=== PATIENT | female | born 1950 | race Caucasian/White ===

== ENCOUNTER 2021-04-02 13:23 | Inpatient (IN) | payer OTHER, MEDICARE ==
[~2021-04-02] VITALS: Ht 167.6 cm; Wt 64.9 kg
--- NOTE | ~2021-04-02 | EMS ---
[address] [address] EMS Patient Care Report Name: CELENA VALENTINO Room #: REG CHANTAL Haque#: [id number] Admission: 04/02/21 Attend Phys: Discharge: Date of : 46 Report #: [id number] THIS REPORT FOR: //name// Report Transmitted: 04/02/2021 18:45 EMS Care Summary [facility] MED-ACT Incident [id number] @ 04/02/2021 12:30 Incident Location [address] [place] [address] Patient CELENA VALENTINO Female, 71 Years 1950 Patient Address [address] [place] [address] Patient History Hypertension (HTN), Patient Allergies Codeine, Patient Medications Atenolol, Chief Complaint chest tightness Disposition Transported No Lights/[place] Dispatch Reason Chest Pain (Non-Traumatic) Transported To [facility] Narrative [id number] dispatched emergent to C1 chest pain. Upon arrival pt found laying in hospital bed in Trendelenburg. Staff report the pt had a total knee replacement on and today the pt has been doing physical therapy and was about to [address] [address] EMS Patient Care Report Name: CELENA VALENTINO Room #: REG CHANTAL Haque#: [id number] Admission: 04/02/21 Attend Phys: Discharge: Date of : 46 Report #: [id number] be discharged to go home. The pt had a sudden onset of chest tightness, shortness of breath, nausea, bilateral shoulder pain. Pt denies any chest pain. Pt states the shortness of breath is intermittent. Pt states having her legs up makes it worse. Every time EMS initiated normal saline bolus the pt would have a severe dyspneic episode, when saline was stopped the pt would have relief in her shortness of breath. EMS was unable to maintain Trendelenburg position as the pt was having severe discomfort from this position. Staff report prior to our arrival they started an IV gave approximately 200cc of normal saline. Staff report they gave the pt ODT Zofran for her nausea. Pt reports she has no relief from the Zofran. Staff report the pt has been on no medications prior or after her surgery other than pain relief. Staff report starting today they started back on her blood pressure medications. Pt assessment performed. Vitals assessed including 12 lead ecg, temp, ETCO2. Pt moved to cot. Pt placed in Trendelenburg. Pt placed supine as Trendelenburg was causing her increased discomfort. Fluid bolus initiated. Saline bolus stopped as pt had increased dyspnea. Pt's BP continued to decrease. Pt moved to ambulance. Biocom to [facility] performed. Norepinephrine initiated. Pt report given to RN. Pt care transferred to [facility] without incident. [id number] cleared call. Initial Vitals @12:42P: 64, @12:48P: 62,BP: 53/34,SpO2: 98, @12:44P: 62,SpO2: 91, @12:59P: 68,BP: 47/38,SpO2: 98, @13:15P: 65,EtCO2: 14, @13:08P: 66,R: 21,EtCO2: 17,SpO2: 95, @13:07P: 69,R: 22,BP: 71/49,EtCO2: 16,SpO2: 93, @13:14P: 69,R: 23,BP: 46/35,EtCO2: 18,SpO2: 98, @12:43P: 81,R: 20,BP: 89/72,Pain: 0/10,GCS: 15,Temp: 97.6F,SpO2: 98,Revised Trauma: 11, Assessments @12:40MENTAL:Person Oriented,Time Oriented,Place Oriented,Event Oriented,SKIN:Cold,Pale,HEENT:Eyes: Left Pupil: 4-mm,Eyes: Right Pupil: 4-mm,Head/Face: No Abnormalities,LUNG SOUNDS:General: Nausea,Left Upper: Distension,Right Upper: Distension,Left Lower: Distension,Right Lower: Distension,ABDOMEN:General: Nausea,Left Upper: Distension,Right Upper: Distension,Left Lower: Distension,Right Lower: Distension,PELVIS//GI:EXTREMITIES:Left Arm: Abnormal Pulse,Left Arm: Abnormal Sensation,Right Arm: Abnormal Pulse,Right Arm: Abnormal Sensation,Left Leg: Abnormal Pulse,Right Leg: Abnormal Pulse,PULSE:Radial: Absent,Pedal: Absent,Carotid: 2+ Normal,NEURO:No Abnormalities, Impression Pulmonary Embolism [facility] [address] [place] [address] EMS Patient Care Report Name: CELENA VALENTINO Room #: REG ER [place]#: [id number] Admission: 04/02/21 Attend Phys: Discharge: Date of : 46 Report #: [id number] Procedures @PTAOxygen FlowRate: 4 Device: Nasal Cannula (NC) Response: UnchangedSucceeded@PTANormal Saline (.9% NaCl) 200cc (20 ga) Site: Antecubital-LeftResponse: UnchangedSucceeded@PTAOndansetron - 4 Milligrams (mg) - OralResponse: Unchanged@13:15Norepinephrine - 10 Micrograms (mcg) - Intravenous (IV)Response: Improved@13:02Surgical Mask on PatientResponse: Unchanged@12:4412-Lead ECGResponse: UnchangedSucceeded@12:38TrendelenburgResponse: UnchangedSucceeded@12:45Saline - 250 Milliliters (ml) - Intravenous (IV)Response: Worse Timeline MS SQL DEVELOPER,Oxygen FlowRate: 4 Device: Nasal Cannula (NC) Response: UnchangedSucceeded, MS SQL DEVELOPER,Normal Saline (.9% NaCl) 200cc 20 ga Site: Antecubital-Left,Response: UnchangedSucceeded, MS SQL DEVELOPER,Ondansetron - 4 Milligrams (mg) - Oral,Response: Unchanged 12:29,Call Received 12:29,Psap Call 12:30,Dispatched 12:32,En Route 12:36,On Scene 12:38,At Patient 12:38,Trendelenburg,Response: UnchangedSucceeded, 12:42,BP: / M,PULSE: 64,RR: R,SPO2: Ox,ETCO2: ,BG: ,PAIN: ,GCS: , 12:43,BP: 89/72 M,PULSE: 81,RR: 20 R,SPO2: 98 Ox,ETCO2: ,BG: ,PAIN: 0,GCS: 15, 12:44,12-Lead ECG,Response: UnchangedSucceeded, 12:44,BP: / M,PULSE: 62,RR: R,SPO2: 91 Ox,ETCO2: ,BG: ,PAIN: ,GCS: , 12:45,Saline - 250 Milliliters (ml) - Intravenous (IV),Response: Worse 12:48,BP: 53/34 M,PULSE: 62,RR: R,SPO2: 98 Ox,ETCO2: ,BG: ,PAIN: ,GCS: , 12:59,BP: 47/38 M,PULSE: 68,RR: R,SPO2: 98 Ox,ETCO2: ,BG: ,PAIN: ,GCS: , 13:02,Surgical Mask on Patient,Response: Unchanged 13:02,Depart Scene 13:07,BP: 71/49 M,PULSE: 69,RR: 22 R,SPO2: 93 Ox,ETCO2: 16 ,BG: ,PAIN: ,GCS: , 13:08,BP: / M,PULSE: 66,RR: 21 R,SPO2: 95 Ox,ETCO2: 17 ,BG: ,PAIN: ,GCS: , 13:14,BP: 46/35 M,PULSE: 69,RR: 23 R,SPO2: 98 Ox,ETCO2: 18 ,BG: ,PAIN: ,GCS: , 13:15,Norepinephrine - 10 Micrograms (mcg) - Intravenous (IV),Response: Improved 13:15,BP: / M,PULSE: 65,RR: R,SPO2: Ox,ETCO2: 14 ,BG: ,PAIN: ,GCS: , 13:16,At Destination 13:46,Call Closed Disclaimer v1.1 Copyright 2020 [employer] This EMS Care Summary contains data elements from the applicable legal record (which may be displayed differently). It is designed to provide pertinent information for the following purposes: continuity of care, clinical quality, and state data reporting. The complete legal record is available to ED staff [address] [address] EMS Patient Care Report Name: CELENA VALENTINO Room #: REG [facility].R.#: [id number] Admission: 04/02/21 Attend Phys: Discharge: Date of : 46 Report #: [id number] and administrators of the receiving hospital in [facility]'s Patient Tracker. All data is provided "as is."
--- NOTE | ~2021-04-02 | HC ---
[facility] [place] [address] CONSULTATION Name: CELENA VALENTINO Room #: 206-P ADM IN M.R.#: [id number] Admission: 04/02/21 Attend Phys: Flex Ortega MD Discharge: Date of : 46 Report #: [id number] THIS REPORT FOR: cc: Crystal Portillo MD, T.J. MD Smithson, David G. MD ~ DATE OF SERVICE: 04/04/2021 HISTORY OF PRESENT ILLNESS: The patient is a 71-year-old white female who underwent a left total knee replacement on , 03/31 at [facility]. She was doing well, ambulating and had good knee range of motion. When she was getting ready for discharge, she felt dizzy and weak. Blood pressures dropped down below the 90s. She was admitted, noted to be significantly hypotensive, thought to be due to calcium channel blockers as well as narcotic. She was given IV fluids. Hypotension was thought to be multifactorial. She was requiring Levophed. As far as her constipation, she has since had several large BMs. She is on Lovenox for DVT prophylaxis. We are seeing her in rehabilitation medicine consultation. CT scan did show stool in colon and there are also findings consistent with distal gastritis and mucosal thickening. PRIOR MEDICAL HISTORY: Includes hypertension, hyperlipidemia, kidney stones. MEDICATIONS: Please see the full medication listing. ALLERGIES: CODEINE. SOCIAL HISTORY: Lives in a house with . No stairs. is retired and can assist if need be. Involved daughter who lives in the area as well as a son-in-law who is noted to be a physical therapist. They apparently have placed grab bars, etc., around the house. REVIEW OF SYSTEMS: Did not offer any current complaints of chest pain or shortness of breath. She has abdominal discomfort and complains of overall weakness. PHYSICAL EXAMINATION: GENERAL: A 71-year-old slender female, in no obvious distress. VITAL SIGNS: Temperature 37.1, pulse 108, respirations 21, blood pressure 143/72. NEUROLOGIC: The patient is alert, follows basic commands. Facies are symmetric. HEENT: Appeared to be benign. EXTREMITIES: She does have functional range of motion of both upper extremities. Strength appeared to be a 4-/5 out of 5. Lower extremities: Functional range of motion of the right lower extremity without focal weakness. [address] [address] CONSULTATION Name: CELENA VALENTINO Room #: 206-P [facility] IN .R.#: [id number] Admission: 04/02/21 Attend Phys: Flex Ortega MD Discharge: Date of : 46 Report #: [id number] No distal edema. Left knee has the ice pack over it, dressings in place. No calf swelling. She does have quite decent range of motion of that knee, appears to be 0 to probably at least 80 degrees, although I did not use a goniometer. She moved that leg when I was able to pick the left leg up off the bed. She has not been seen by therapy as of yet. She is actually still in the Emergency Department waiting area. ASSESSMENT: A 71-year-old white female with the following problem list: 1. Multifactorial hypotension with suspected medication related, narcotics, MIRNA inhibitor, amlodipine. Has required Levophed. 2. Generalized weakness and debilitation. 3. Constipation. Has had several large bowel movements. 4. Status post left total knee arthroplasty. 5. Hypertension. 6. Deep vein thrombosis prophylaxis. PLAN: I agree with PT and OT involvement. We will ask PT to work on knee range of motion, assess her knee range of motion and functional mobility as well as ADLs through OT. We discussed consideration for a short acute inpatient rehab stay. Discussion with the daughter and regarding considering their different options. Current plan is to wean off the Levophed, continue the fluids. We will be glad to follow along with you regarding her rehab therapy needs. By: [id number] Froy Moreno MD /nt
[2021-04-02 13:27] VITALS: BP 85/44
[2021-04-02 13:53] LABS: ABSOLUTE NEUTROPHILS 10.5 thou/uL (1.4-8.2); BASOPHILS 0.7 % (0.0-2.0); HEMATOCRIT 40.9 % (37.0-47.0); HEMOGLOBIN 13.5 gm/dL (12.0-15.0); MCH 31.7 pg (26.0-34.0); MCHC 32.9 g/dL (28.0-37.0); MCV 96.2 fL (80.0-100.0); MONOCYTES 3.7 % (1.0-8.0); PLATELET COUNT 452 thou/uL (150-400); POLYS 80.6 % (36.0-66.0); RBC 4.25 mil/uL (4.20-5.00); RDW 14.9 % (10.5-14.5)
[2021-04-02 14:01] LABS: CALCIUM 9.1 mg/dL (8.5-10.1); CREATININE 1.2 mg/dL (0.6-1.0); POTASSIUM 3.6 mmol/L (3.5-5.1)
[2021-04-02 14:12] LABS: APTT 22.1 Seconds (24.5-32.8); INR 0.89; PROTIME 9.8 Seconds (10.5-12.1); TOTAL BILIRUBIN 0.4 mg/dL (0.2-1.0); TOTAL PROTEIN 6.4 g/dL (6.4-8.2)
[2021-04-02 15:12] LABS: URINE BILIRUBIN NEGATIVE (Negative); URINE BLOOD NEGATIVE (Negative); URINE CLARITY CLEAR; URINE COLOR YELLOW; URINE GLUCOSE-RANDOM* NEGATIVE (Negative); URINE KETONES NEGATIVE (Negative); URINE LEUKOCYTES-REFLEX NEGATIVE (Negative); URINE NITRITE-REFLEX NEGATIVE (Negative); URINE PROTEIN (DIPSTICK) NEGATIVE (Negative); URINE SPECIFIC GRAVITY 1.015 (1.005-1.035); URINE UROBILINOGEN 0.2 E.U./dl (0.2-1.0)
--- NOTE | 2021-04-02 18:39 | NUR ---
VAT CONSULTED FOR CVAD BUT AFTER DISCUSSION WITH DR VOGT AND PT, PICC WAS AGREED UPON. JUDIE AVILA WAS WIDELY PATENT WITH USG. 5FR TL PICC TRIMMED TO 44CM INSERTED TO 3CM EXTERNAL WITH PEAKED PWAVES ON 3CG FOR CONFIRMATION. PT TOLERATED WELL. PICC RELEASED FOR IMMEDIATE USE PER PROTOCOL TO MIKKI SERNA
[2021-04-02 20:06] VITALS: BP 134/73
[2021-04-02] MEDS ORDERED: REQUIP 0.25 M0.25 M1 PO (22:26)
[2021-04-03 00:08] VITALS: BP 120/73
[2021-04-03 06:09] LABS: MCH 31.1 pg (26.0-34.0); MCHC 32.8 g/dL (28.0-37.0); MCV 94.7 fL (80.0-100.0); RBC 3.38 mil/uL (4.20-5.00); RDW 14.1 % (10.5-14.5)
[2021-04-03 06:14] LABS: HEMOGLOBIN 10.5 gm/dL (12.0-15.0)
[2021-04-03 06:19] LABS: CALCIUM 7.4 mg/dL (8.5-10.1); CREATININE 0.8 mg/dL (0.6-1.0); POTASSIUM 3.9 mmol/L (3.5-5.1)
[2021-04-03 07:02] VITALS: BP 96/58
--- NOTE | 2021-04-03 09:43 | NUR ---
TALKED WITH DR MORALES AND INFORMED HIM THAT ABOUT HE CHANGE IN THE FOLLOWING LABS FROM YESTERDAY: HGB - 04/02/21 @ 1343 - 13.5 04/03/21 @ 0545 - 10.5 HCT - 04/02/21 @ 1343 - 40.9 04/03/21 @ 0545 - 32.0 RBC - 04/02/21 @ 1343 - 4.25 04/03/21 @ 0545 - 3.38
[2021-04-03 22:26] VITALS: BP 133/68
--- NOTE | 2021-04-04 06:54 | NUR ---
DR RANDY WOMACK (ORTHO) AT BEDSIDE, DR ASKED TO BE NOTIFIED WHEN HOSPITALIST ROUNDS. WILL INFORM DAY NURSE,
[2021-04-04 07:23] VITALS: BP 138/49
--- NOTE | 2021-04-04 07:28 | EKG ---
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
[2021-04-04 10:24] VITALS: BP 143/72
--- NOTE | 2021-04-04 10:27 | NUR ---
PT SITTING UP @ SIDE OF BED TAKING BED/SPONGE BATH.
--- NOTE | 2021-04-04 12:07 | NUR ---
PT SEEING PHYSICAL THERAPIST @ THIS TIME
[2021-04-04 13:04] LABS: HEMATOCRIT 24.9 % (37.0-47.0); MCH 31.4 pg (26.0-34.0); MCHC 33.1 g/dL (28.0-37.0); MCV 94.7 fL (80.0-100.0); RBC 2.63 mil/uL (4.20-5.00); RDW 13.9 % (10.5-14.5); WBC 12.1 thou/uL (4.0-11.0)
[2021-04-04 13:05] LABS: HEMOGLOBIN 8.3 gm/dL (12.0-15.0)
[2021-04-04 13:13] LABS: CREATININE 0.6 mg/dL (0.6-1.0)
[2021-04-04 13:15] LABS: POTASSIUM 2.9 mmol/L (3.5-5.1)
[2021-04-04 13:45] VITALS: BP 147/67
--- NOTE | 2021-04-04 15:50 | 2DMMODE ---
[facility] [place] [address] 2 D/M-MODE ECHOCARDIOGRAM Name: CELENA VALENTINO Room #: 170-15 ADM IN M.R.#: [id number] Admission: 04/02/21 Attend Phys: Flex Ortega MD Discharge: Date of : 46 Report #: [id number] THIS REPORT FOR: cc: Crystal Portillo MD, T.J. MD Mancuso, Gerald M. MD [facility] ~ APPROVED REPORT Study performed: 04/04/2021 14:00:09 EXAM: Comprehensive 2D, Doppler, and color-flow Echocardiogram Patient Location: ER Room #: 15 Status: routine BSA: 1.64 HR: 98 bpm BP: 136/57 mmHg Rhythm: NSR Other Information Study Quality: Good Indications Hypotension 2D Dimensions RVDd: 30.62 mm IVSd: 8.12 (7-11mm) LVOT Diam: 20.96 (18-24mm) LVDd: 38.43 mm PWd: 7.49 (7-11mm) Ascending Ao: 31.86 (22-36mm) LVDs: 25.04 (25-40mm) Left Atrium: 31.48 (27-40mm) Aortic Root: 28.54 mm IVC: 13.00 mm Volumes Left Atrial Volume (Systole) Single Plane 4CH: 47.54 mL Single Plane 2CH: 51.48 mL LA ESV Index: 35.00 mL/m2 Aortic Valve AoV Peak Edwar.: 1.54 m/s AO Peak Gr.: 9.47 mmHg LVOT Max P.95 mmHg LVOT Max V: 1.32 m/s PEGGY Vmax: 2.95 cm2 [facility] [address] [place] [address] 2 D/M-MODE ECHOCARDIOGRAM Name: CELENA VALENTINO Room #: [facility] ADM IN [facility].#: [id number] Admission: 04/02/21 Attend Phys: Flex Ortega MD Discharge: Date of : 46 Report #: [id number] Mitral Valve E/A Ratio: 1.2 MV Decel. Time: 208.76 ms MV E Max Edwar.: 1.17 m/s MV A Edwar.: 0.94 m/s MV PHT: 60.54 ms IVRT: 55.36 ms Pulmonary Valve PV Peak Edwar.: 0.92 m/s PV Peak Gr.: 3.37 mmHg Pulmonary Vein P Vein S: 0.71 m/s P Vein A: 0.34 m/s P Vein D: 0.45 m/s P Vein A Dur.: 115.3 msec P Vein S/D Ratio: 1.58 Left Ventricle The left ventricle is normal size. There is normal LV segmental wall motion. There is normal left ventricular wall thickness. Left ventricular systolic function is normal. The left ventricular ejection fraction is within the normal range. LVEF is 55-60%. The left ventricular diastolic function is normal. Right Ventricle The right ventricle is normal size. The right ventricular systolic function is normal. Atria The left atrium size is normal. The right atrium size is normal. Aortic Valve The aortic valve is normal in structure. No aortic regurgitation is present. There is no aortic valvular stenosis. Mitral Valve The mitral valve is normal in structure. There is no mitral valve regurgitation noted. No evidence of mitral valve stenosis. Tricuspid Valve The tricuspid valve is normal in structure. There is no tricuspid valve regurgitation noted. Pulmonic Valve The pulmonary valve is normal in structure. There is no pulmonic [facility] [address] [place] [address] 2 D/M-MODE ECHOCARDIOGRAM Name: CELENA VALENTINO Room #: [facility] ADM IN .R.#: [id number] Admission: 04/02/21 Attend Phys: Flex Ortega MD Discharge: Date of : 46 Report #: [id number] valvular regurgitation. Great Vessels The aortic root is normal in size. IVC is normal in size and collapses >50% with inspiration. Pericardium trivial circumferential pericardial effusion. <Conclusion> The left ventricle is normal size. LVEF is 55-60%. The left ventricular diastolic function is normal. The right ventricle is normal size. The left atrium size is normal. The aortic valve is normal in structure. There is no mitral valve regurgitation noted. There is no tricuspid valve regurgitation noted. The aortic root is normal in size. trivial circumferential pericardial effusion. <ELECTRONICALLY SIGNED> By: Florentino Quiroz MD, FACC 04/04/21 1550 [id number] Florentino Quiroz MD, FACC /INF
[2021-04-04 16:07] LABS: % SATURATION 3 % (20-39); IRON 5 ug/dL (50-170); TIBC 189 ug/dL (250-450)
[2021-04-04 16:45] VITALS: BP 147/67
--- NOTE | 2021-04-04 18:45 | NUR ---
PT TO THENUNIT FROM THE ER. ORINETED TO ROOM AND BEDSPACE. ASSESSMENT CHARTED - CARE PLAC INITITATED. PT REMIANS HECTOR. ALAINA TO DD. DRESSING TO L KNEE C/D/I. MONISHA BARILLAS INSITU. PT STATES SHE HAS PAIN IN ABDOMEN. AT BEDSIDE.
[2021-04-04 19:00] VITALS: BP 149/70
[2021-04-04 19:52] VITALS: BP 139/66
[2021-04-05 03:30] VITALS: BP 124/61
--- NOTE | 2021-04-05 04:41 | NUR ---
SLEPT PART OF SHIFT. UP TO COMODE LAST PM AND HAD SMALL BM PAST SUPP. STATES STOMACH PAIN IS BETTER THIS AM. NO PRESENT COMPLAINTS OF NAUSEA. WORKING ON GOALS AND PLAN OF CARE FOR NOC. DENIES NEED FOR PAIN MEDICATIONS. CONTINUE TO ASSES.
[2021-04-05 06:34] LABS: HEMOGLOBIN 7.5 gm/dL (12.0-15.0); MCH 30.7 pg (26.0-34.0); MCHC 32.5 g/dL (28.0-37.0); MCV 94.4 fL (80.0-100.0); RBC 2.44 mil/uL (4.20-5.00); RDW 14.2 % (10.5-14.5); WBC 13.1 thou/uL (4.0-11.0)
[2021-04-05 06:43] LABS: CALCIUM 8.1 mg/dL (8.5-10.1); CREATININE 0.7 mg/dL (0.6-1.0); POTASSIUM 3.4 mmol/L (3.5-5.1)
[2021-04-05 08:00] VITALS: BP 136/66
[2021-04-05 08:55] LABS: MAGNESIUM 1.8 mg/dL (1.8-2.4); PHOSPHORUS 1.9 mg/dL (2.5-4.9)
--- NOTE | 2021-04-05 11:53 | NUR ---
Nutrition: Consult received stating NPO. Pt had [facility] altered ground diet order x 2 days. NPO today for EGD. Admit with abdominal pain, nausea. Ileus vs SBO per GI r/t constipation likely r/t narcotics. Recent knee replacement. Now having BMs/diarrhea post bowel regimen. No weight hx available however pt did not risk for poor intake, weight loss on admission assessment. Will follow for diet advancement/tolerance post EGD. Available for nutrition inteventions if needed but place as low risk for now.
[2021-04-05 16:00] VITALS: BP 153/74
[2021-04-05 16:54] LABS: HEMATOCRIT 24.3 % (37.0-47.0); HEMOGLOBIN 7.9 gm/dL (12.0-15.0)
--- NOTE | 2021-04-05 18:19 | NUR ---
ASSESSMENT CHARTED - MEDS PER OCT - NO CO'S OF PAIN OR NAUSEA. PT WITH POOR APPITITE. ABLE TO HAVE CLEAR LIQUIDS AND ADVANCE ELSA. PT TO GI LAB TODAY FOR EGD - PT WITH 2 SMALL ULCERS. PT H&H DRAWN THIS AFTERNOON. UP TO 7.9 FROM 7.5 THIS AM. VITALIY KNEE L C/D/I. SEEN BY PHYS AND OCC THERAPY. FAMILY INTO VISIT, NO CO'S AT THE PRESENT TIME.
[2021-04-05 19:19] VITALS: BP 151/74
[2021-04-06 04:00] VITALS: BP 124/77
--- NOTE | 2021-04-06 05:20 | NUR ---
PT RESTING QUIETLY IN ROOM WITH OUT C/O PAIN, VSS, POOR APETITE, L KNEE INCISION DRESSING REMAINS CDI, WILL CON'T TO MONITOR PER PPOC.
[2021-04-06 07:58] VITALS: BP 137/67
[2021-04-06 08:49] LABS: HEMATOCRIT 21.3 % (37.0-47.0); HEMOGLOBIN 7.1 gm/dL (12.0-15.0); MCH 31.7 pg (26.0-34.0); MCHC 33.6 g/dL (28.0-37.0); MCV 94.4 fL (80.0-100.0); PLATELET COUNT 338 thou/uL (150-400); RBC 2.26 mil/uL (4.20-5.00); RDW 14.6 % (10.5-14.5); WBC 11.1 thou/uL (4.0-11.0)
[2021-04-06 09:14] LABS: CALCIUM 8.3 mg/dL (8.5-10.1); CREATININE 0.7 mg/dL (0.6-1.0); MAGNESIUM 1.7 mg/dL (1.8-2.4); PHOSPHORUS 2.4 mg/dL (2.6-4.7); POTASSIUM 3.2 mmol/L (3.5-5.1); TOTAL BILIRUBIN 0.6 mg/dL (0.2-1.0); TOTAL PROTEIN 5.5 g/dL (6.4-8.2)
--- NOTE | 2021-04-06 09:20 | NUR ---
met with patient, dtr at bedside. Patient admits with GI bleed. Recent total knee at [facility]. Patient resides at home with spouse. no hx of DME, HH, skilled. Patient with no steps in home. She has supportive family. Patient evaled by [facility] and accepted. Discussed [facility], HH with patient. She plans to review with family and decide. Gave list of HH agencies.
[2021-04-06 11:07] VITALS: BP 131/74
[2021-04-06 11:08] VITALS: BP 129/66
[2021-04-06 11:37] LABS: ABSOLUTE NEUTROPHILS 9.4 thou/uL (1.4-8.2); MYELOCYTES 1 %
[2021-04-06 11:42] LABS: ANISOCYTOSIS 1+; OVALOCYTES FEW
--- NOTE | 2021-04-06 12:55 | NUR ---
patient evaled by [facility] and accepted. Patient in agreement to transfer to .
[2021-04-06] MEDS ORDERED: BENTYL 10 MG CA10 M1 PO (13:03)
[2021-04-06] MEDS ORDERED: IRON325 PO (13:04)
[2021-04-06] MEDS ORDERED: HYDROCODON-ACE1 EAC7 PO (13:04)
[2021-04-06] MEDS ORDERED: ATENOLOL 25 MG25 M1 PO (13:04)
[2021-04-06] MEDS ORDERED: ACETAMINOPHEN325 M1 PO (13:05)
[2021-04-06] MEDS ORDERED: PROTONIX40 M2 PO (13:05)
[2021-04-06 15:12] VITALS: BP 138/57
[2021-04-06 16:34] LABS: HEMATOCRIT 23.7 % (37.0-47.0); HEMOGLOBIN 8.1 gm/dL (12.0-15.0)
--- NOTE | 2021-04-06 19:05 | NUR ---
assessment as chrted - meds as per mar - pt with emisis at luch time today with small amount of liquid. pt able to dedrick small amount of liquid at dinner time. kub shows ilieus improving. heam this am 7.1 rechecked this afternoon up to 8.1. estrada d/c's at 1230 pt has voided x 2 since removal - states she feels she empties bladder when voids. mag given as ordered iv. pt ambualted with use of [facility] to bathroom . was to go to rehab this afternoon - pt and did not feel she was ready for rehab - she was very tierd and not feeling ready to go up there. dr manning called and informed and she placed transfer on hold for the present time. pt up in the chair. family into visit. no co's at the present time.
[2021-04-06 19:42] VITALS: BP 134/80
[2021-04-07 05:22] VITALS: BP 132/67
[2021-04-07 06:19] LABS: HEMATOCRIT 22.2 % (37.0-47.0); HEMOGLOBIN 7.6 gm/dL (12.0-15.0); MCH 31.7 pg (26.0-34.0); MCHC 34.3 g/dL (28.0-37.0); MCV 92.4 fL (80.0-100.0); RDW 14.8 % (10.5-14.5); WBC 12.3 thou/uL (4.0-11.0)
--- NOTE | 2021-04-07 06:22 | NUR ---
PT A/0X4 AND UP WITH SBA WITH WALKER. POC WITH IVF GTT AND PO ANTIBIOTICS. ULTRA SOUND COMPLETED OVERNIGHT. PT STATES IT IS MORE COMFORTABLE TO SLEEP IN CHAIR THAN BED. CATHFLO USED ON TOP WHITE LUMEN AND WORKING NICELY. PT STATES LITTLE PAIN AT OPERATION SITE BUT TOLERABLE. VSS.
[2021-04-07 06:30] LABS: PLATELET COUNT 440 thou/uL (150-400)
[2021-04-07 06:33] LABS: CALCIUM 7.8 mg/dL (8.5-10.1); CREATININE 0.6 mg/dL (0.6-1.0); MAGNESIUM 1.8 mg/dL (1.8-2.4)
[2021-04-07 06:45] LABS: POTASSIUM 2.8 mmol/L (3.5-5.1)
[2021-04-07 07:30] VITALS: BP 135/63
--- NOTE | 2021-04-07 08:00 | NUR ---
CRITICAL LAB K+ 2.8. PT WAS STARTED ON / NS WITH 20 MEQ K AT 50ML/HR. SENT KRYPOTEXT TO PROVIDER.
[2021-04-07 08:34] LABS: ABSOLUTE NEUTROPHILS 9.2 thou/uL (1.4-8.2); METAMYELOCYTES 1 %
[2021-04-07 08:36] LABS: ANISOCYTOSIS 1+; OVALOCYTES 1+
[2021-04-07 11:20] VITALS: BP 136/63
--- NOTE | 2021-04-07 14:04 | NUR ---
[facility] acute [facility] has accepted the pt and she is agreeable. DC to [facility] anticipated this afternoon. Covid now pending.
--- NOTE | 2021-04-07 15:54 | NUR ---
PT IS AXOX4, PLEASANT; VSS, AFEBRILE, SR ON THE MONITOR. PT C/O OF RESTLESS LEGS, WITH SOME NAUSEA; PT HAD LOOSE BM THIS AM. K+ WAS 2.[address] CLARK CONSULTED. ELECTROLYTE PROTOCOL INITIATED. PT TO D/C TO [facility] THIS PM. REPORT GIVEN TO [facility]. LOW FALL PRECAUTIONS IN PLACE. NO CONCERNS AT THIS TIME.
== END 2021-04-07 15:50 | DRG 377 ==
LOC: ER 13:23 → EROBS 20:38 → 2N 20:38 → EROBS 04-04 06:15 → 2N 04-04 16:45
PROVIDERS: Emergency Medicine; Internal Medicine; Nurse Practitioner; ADMIT Hospitalist; ATTEND Hospitalist
PROC: 0DB68ZX Excision of Stomach, Via Natural or Artificial Opening Endoscopic, Diagnostic (ICD-10-PCS; principal; 2021-04-05)
DX: K29.71 Gastritis, unspecified, with bleeding (principal); J18.9 Pneumonia, unspecified organism; R65.11 Systemic inflammatory response syndrome (SIRS) of non-infectious origin with acute organ dysfunction; K56.7 Ileus, unspecified; E87.2 Acidosis; I95.2 Hypotension due to drugs; K20.91 Esophagitis, unspecified with bleeding; K26.4 Chronic or unspecified duodenal ulcer with hemorrhage; Z20.822 Contact with and (suspected) exposure to COVID-19; I95.89 Other hypotension; I10 Essential (primary) hypertension; E78.5 Hyperlipidemia, unspecified; K59.00 Constipation, unspecified; Z96.652 Presence of left artificial knee joint; R53.81 Other malaise; M19.90 Unspecified osteoarthritis, unspecified site; E87.6 Hypokalemia; D64.9 Anemia, unspecified; E83.39 Other disorders of phosphorus metabolism; E86.0 Dehydration; K22.2 Esophageal obstruction; K44.9 Diaphragmatic hernia without obstruction or gangrene; Z88.6 Allergy status to analgesic agent; Z87.442 Personal history of urinary calculi; Z79.899 Other long term (current) drug therapy
CPT/HCPCS: 10081; 27000; 62110; 62900; 70005

== ENCOUNTER 2021-04-06 14:14 | Inpatient (IN) | payer OTHER, MEDICARE ==
[~2021-04-06] VITALS: Ht 162.6 cm; Wt 60.3 kg
--- NOTE | ~2021-04-06 | HC ---
[facility] [place] [address] CONSULTATION Name: CELENA VALENTINO Room #: 511-P ADM IN M.R.#: [id number] Admission: 04/07/21 Attend Phys: Froy Moreno MD Discharge: Date of : 46 Report #: [id number] THIS REPORT FOR: cc: Crystal Portillo MD, T.J. MD Deutch, Neal B. PhD ~ DATE OF SERVICE: 04/11/2021 NEUROBEHAVIORAL EXAMINATION DATE OF CONSULTATION: 04/11/2021 ATTENDING PHYSICIAN: Froy Moreno M.D. SERVICE CREW SUPERVISOR: Rickey Pederson, PhD CLINICAL PRESENTATION: The patient is a 71-year-old female admitted to the rehabilitation unit for a comprehensive inpatient rehabilitation program. The initial symptoms on admission to the hospital were dizziness, weakness and hypotension. She underwent a left total knee replacement on 03/31/2021. She was diagnosed with a GI bleed, secondary to duodenal ulcer and gastritis. An abdominal CT scan revealed distal gastritis with mucosal thickening and stranding of the distal stomach and pylorus, fluid throughout the colon with colostomy and thickening consistent with gastritis was found. The patient has had critically low potassium, which required replacement. Her problem list on admission to the hospital included abdominal pain, gastric ulcer, hypokalemia, hypotension, ileus and lactic acidosis. Her assessment on admission to the rehabilitation unit included generalized weakness and debility, constipation secondary to narcotics, SBO versus ileus and gastritis, upper GI bleed with anemia, multifactorial hypotension, DJD, status post total knee replacement on 03/31/2021 and a history of hypertension. A complete description of her medical condition, history and medications can be found in her medical record. Neuropsychological consultation was requested to provide assistance in the assessment of cognitive and emotional status and to provide recommendations and services. Prior to this most recent deterioration in her medical condition, she was living independently in her own home. She underwent a total knee replacement. She was getting ready to leave for home when she developed a hypotensive episode. The patient has two children. One daughter lives nearby and provides help as needed. The patient is a college graduate. TECHNIQUES UTILIZED: Clinical interview, review of medical records, staff consultation and behavioral observation, family interview -- mini mental status exam 2 standard version and clock drawing. [address] [address] CONSULTATION Name: CELENA VALENTINO Room #: [address] [place] [address] [place] .R.#: [id number] Admission: 04/07/21 Attend Phys: Froy Moreno MD Discharge: Date of : 46 Report #: [id number] EXAMINATION PROCEDURE: The patient was alert and cooperative with the assessment. She accurately described events surrounding her admission. There is no evidence of aphasia. Her thoughts are logical and goal oriented. There is no evidence of thought disorder. 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 She describes her symptoms to include anxiety as she is worried about her medical wellbeing, frustration in regard to the nausea, vomiting and diarrhea, which she has been experiencing. She reports difficulty with sleep, appetite and intermittent irritability. She also reports problems with her memory. She does not describe difficulty with word finding. Her performance on the MMSE 2 brief version is within normal limits with a raw score 16 of 16. Performance on the MMSE 2 standard version is within normal limits with a raw score of 30/30. Clock drawings within normal limits. However, subtle difficulty in hand placement is noted. The patient has primarily presenting with increased anxiety and intermittent irritability. She was taking nortriptyline to assist with sleep prior to this most recent change in cognition. Nortriptyline has been discontinued. DIAGNOSTIC IMPRESSION: Adjustment disorder with anxious mood. RECOMMENDATIONS: The patient indicated having taken nortriptyline on a regular basis for an extended period of time. It was helping with sleep and has been discontinued. Consider if medically appropriate reinstating the nortriptyline at bedtime to assist with sleep. I have reviewed relaxation technique with her to assist in the management of anxiety. Continued use of anxiety relaxation techniques will be of benefit. Most likely as her medical condition improves, her anxiety will diminish as she returns home and regains her former level of independence. Thank you very much for allowing me to provide the consultation on this patient. By: 1707 0058 Rickey Pederson, PhD /nt
--- NOTE | ~2021-04-06 | PLAN ---
[facility] [place] [address] REHAB UNIT PLAN OF CARE Name: CELENA VALENTINO Room #: 511-P ADM IN M.R.#: [id number] Admission: 04/07/21 Attend Phys: Froy Moreno MD Discharge: Date of : 46 Report #: [id number] THIS REPORT FOR: cc: Crystal Portillo MD, T.J. MD Smithson,Froy Alves MD ~ DATE OF SERVICE: 04/09/2021 PROGRESS NOTE AND OVERALL PLAN OF CARE HISTORY OF PRESENT ILLNESS: The patient is involved in inpatient rehabilitation. She has been pleasant and in no distress and is gradually feeling a little better. Temperature 36.5, pulse 85, respirations 18, blood pressure 143/91. She was in good spirits when I visited with her and her yesterday. Abdominal examination, bowel sounds decreased, but present, soft. She has no calf swelling. Her knee incision is healing well. She has excellent knee range of motion. We discussed deep venous thrombosis prophylaxis. This was also discussed with the patient's Internal Medicine nurse practitioner. The patient cannot be on anticoagulants with her GI bleed. She does not like to wear thigh-high, but agrees to knee high and needs a smaller pair. An order was put in for this. Functionally, she has been transferring with min assist with gait up to 150 feet without an assistive device. She does have min assist needed for gait with an antalgic gait pattern with decreased left stance time. In occupational therapy, this morning, she was min assist for lower body dressing and ____ shower per OT. She utilized a sock aid to ____ compression socks and was mod assist for slip-on shoes. ASSESSMENT: 1. Generalized weakness and debilitation. 2. Constipation secondary to narcotics, small-bowel obstruction versus ileus, gastritis. 3. Upper gastrointestinal bleed with anemia. 4. Multifactorial hypotension. 5. 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 History of hypertension. PLAN: The overall plan of care is based on the pre-admission screen and information garnered from therapy assessments. 1. Estimated length of stay is probably 7-10 days. 2. Medical prognosis is reasonably good. 3. Anticipated interventions includes the interdisciplinary acute inpatient rehabilitation program. 4. Anticipated functional outcomes would be for the patient to become modified independent with transfers, mobility, ADLs and to improve as far as her overall medical condition, so that she can return back [place] [address] REHAB UNIT PLAN OF CARE Name: CELENA VALENTINO Room #: 511-P [facility] IN M.R.#: [id number] Admission: 04/07/21 Attend Phys: Froy Moreno MD Discharge: Date of : 46 Report #: [id number] 5. Discharge destination would be back home with her in her house. 6. Expected therapy by discipline includes PT and OT 1 and 1-1/2 hours per day each five days a week throughout the duration of the acute inpatient rehabilitation stay. ADDENDUM: The patient's prognosis for significant practical improvement within a reasonable period of time appears good. Given the patient's complex medical condition and risk of further medical complication, rehabilitation services could not be safely provided at a lower level of care such as a longterm facility. By: [id number] Froy Moreno MD /nt
[~2021-04-06 14:14] MED LIST: ACETAMINOPHEN325 M1 PO; ATENOLOL 25 MG25 M1 PO; BENTYL 10 MG CA10 M1 PO; HYDROCODON-ACE1 EAC7 PO; IRON325 PO; PROTONIX40 M2 PO; REQUIP 0.25 M0.25 M1 PO
--- NOTE | 2021-04-07 14:55 | NUR ---
Chart review. Going to dc to acute rehab today. Cm visited with doug. She is a & o x3, pleasant and able to make her needs know. 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 She lives in [place] in house with her stephania [phone]. children live out of town. 2 steps to enter, have basement but does not have to go down there. has cane and walker but never had to use them. 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 Manage own medication. No current pcp. No hh or rehab in the past. Will cont following as needed for dc needs.
[2021-04-07 17:32] LABS: CALCIUM 8.1 mg/dL (8.5-10.1); CREATININE 0.6 mg/dL (0.6-1.0)
[2021-04-07 17:43] LABS: POTASSIUM 2.8 mmol/L (3.5-5.1)
[2021-04-07 20:00] VITALS: BP 134/69
--- NOTE | 2021-04-07 20:19 | NUR ---
PT UP TO FLOOR APPROX 1600. PT A&OX4. PT INCISION TO LEFT KNEE IS WELL APPROXIMATED, WITHOUT DRAINAGE OR SWELLING NOTED. NO FRANCES OR SUTURES. PT AND WORRIED ABOUT PT'S HGB AND OVERALL CARE. PT AND STATED THAT THEY WANTED TO MAKE SURE THAT ACUTE MEDICAL ATTENTION WOULD BE ABLE TO BE GIVEN IF NEEDED. THIS NURSE REASSURED PT AND THAT ACUTE MEDICAL ATTENTION WOULD BE READILY AVAILABLE IF NEEDED.
--- NOTE | 2021-04-08 02:42 | NUR ---
PT ASSESSMENT COMPLETED AND VSS. MEDS GIVEN ORDERED AND WELL TOLERATED. FALL PRECAUTIONS IN PLACE. UP TO THE BATHROOM WITH ASST/GAIT/WALKER. POTASSIUM GIVEN ORDERED AND PER ORDERS WILL RECHECK IN AM. LOOSE STOOL X 2 AT HS. PT STATED THAT SHE WAS GLAD BECAUSE SHE NORMALLY HAS CONSTIPATION. PT HAS A RASH ON HER BACK. WILL HAVE JULIÁN CHECK IN AM. CONTACTED DIRECTOR OF PROVIDER RELATIONS CAMRYN AND RECEIVED ORDERS TO HELP PT WITH HER GAS PAIN AND SLEEP. HELPFUL. PT C/O MILD NAUSEA. OFFERED TO GET ORDERS FOR HER NAUSEA. PT REFUSED STATING THAT SHE DID NOT WANT TO TAKE ANYMORE MEDICATION. WILL CONTINUE TO MONITOR FREQUENTLY.
[2021-04-08 06:19] LABS: HEMATOCRIT 23.6 % (37.0-47.0); MCH 31.1 pg (26.0-34.0); MCHC 33.9 g/dL (28.0-37.0); MCV 91.9 fL (80.0-100.0); PLATELET COUNT 509 thou/uL (150-400); RBC 2.57 mil/uL (4.20-5.00); RDW 14.7 % (10.5-14.5)
[2021-04-08 06:51] LABS: CALCIUM 8.4 mg/dL (8.5-10.1); CREATININE 0.6 mg/dL (0.6-1.0); MAGNESIUM 1.8 mg/dL (1.8-2.4); POTASSIUM 3.6 mmol/L (3.5-5.1)
[2021-04-08 08:00] VITALS: BP 124/79
[2021-04-08 09:04] LABS: FOLIC ACID 31.9 ng/mL (8.6-58.9)
[2021-04-08 11:03] LABS: ABSOLUTE NEUTROPHILS 11.3 thou/uL (1.4-8.2); ANISOCYTOSIS SLIGHT; HYPOCHROMASIA SLIGHT; LARGE PLATELETS FEW; NUCLEATED RBCS 2 /100WBC; POIKILOCYTOSIS SLIGHT
--- NOTE | 2021-04-08 12:00 | NUR ---
Chart review. Cont. with discharge planning as needed for dc needs and team meetings.
--- NOTE | 2021-04-08 13:23 | NUR ---
ASSUMED CARE AT 0700. PATIENT IS ALERT AND ORIENTEDX4. PATIENT SANDERSON'S. DRY MOP MAKER ARE EQUAL. LUNGS ARE CLEAR AND DEMINISHED. ABD IS SOFT WITH BSX4. LAXATIVES HELD THIS A.M. R/T DIARRHEA. PATIENT IS UP TO THE BR WITH GAIT BELT AND WALKER TO VOID KERRY COLORED URINE. PATIENT HAD EPISODE OF N/V AFTER BREAKFAST. PRN ANTIEMETIC ORDERED STAT IVP PER N.P. PATIENT HAS RASH ON HER BACK AND STERNAL AREA. LIFT MANAGER NOTIFIED, WILL EVAL ON ROUNDS. DIET CHANGED TO REGULAR DIET. LEFT KNEE INCISION IS HEALED. PATIENT HAS TRIPLE LUMIN PICC IN HER LEFT UPPER ARM. FALL AND SAFETY PROTOCOLS IN PLACE. C/O RHODES PAIN. MEDICATED WITH PRN PAIN MED. CONTINUES TO PROGRESS SLOWLY TOWARDS D/C GOALS. UP IN THE CHAIR FOR MEALS. WILL CONTINUE TO MONITER.
[2021-04-08 19:14] VITALS: BP 139/84
--- NOTE | 2021-04-09 02:13 | NUR ---
assumed care approx 1900 evening 04/08. pt alert and oriented x4, appropriate and cooperative. pt stated she did not sleep well at all last night 04/07 because of diarrhea. pt refused to take laxatives this shift because she stated she wanted to get some sleep. pt does appear to be sleeping soundly off and on. bed alarm on and call light in reach. will continue to monitor.
[2021-04-09 03:53] LABS: HEMATOCRIT 24.6 % (37.0-47.0); HEMOGLOBIN 8.2 gm/dL (12.0-15.0); MCH 30.9 pg (26.0-34.0); MCHC 33.5 g/dL (28.0-37.0); MCV 92.4 fL (80.0-100.0); RBC 2.66 mil/uL (4.20-5.00); RDW 14.8 % (10.5-14.5); WBC 12.1 thou/uL (4.0-11.0)
[2021-04-09 07:47] VITALS: BP 143/91
--- NOTE | 2021-04-09 09:28 | NUR ---
ASSUMED CARE AT 0700. PATIENT IS ALERT AND ORIEINTED X4. PATIENT SANDERSON'S, EVENT LIGHTING SPECIALIST ARE EQUAL. LUNGS ARE CLEAR. ABD IS SOFT WITH BSX4. UP TO THE BATHROOM WITH ASSIST OF 1 STAFF AND GAIT BELT TO BATHROOM TO VOID KERRY COLORED URINE, AND HAVE LOOSE STOOL. ALL LAXATIVES HELD PER PATIENTS REQUEST. LEFT KNEE INCISION HEALED AND OPEN TO AIR. PATIENT HAS TRIPLE LUMIN PICC IN HER LEFT UPPER ARM. FALL AND SAFETY PROTOCOLS IN PLACE. C/O RHODES PAIN. MEDICATED WITH PRN PAIN MED. CONTINUES TO PROGRESS SLOWLY TOWARDS D/C GOALS. WILL CONTINUE TO MONITER.
--- NOTE | 2021-04-09 17:17 | NUR ---
VASCULAR ACCESS NURSE ROUNDING. THIS PATIENT IS NO LONGER ON IV MEDS AT THIS TIME. SHE CONTINUES TO HAVE A LEFT UPPER ARM TRIPLE LUMEN PICC. THE LINE IS NO LONGER NECESSARY. SUGGEST REMOVAL OF THE LINE TO DECREASE THE RISK OF A POTENTIAL BLOOD STREAM INFECTION.
[2021-04-09 19:20] VITALS: BP 130/84
--- NOTE | 2021-04-10 01:54 | NUR ---
assumed care approx 1900 evening 04/09. pt alert and oriented x4, appropriate and cooperative. pt modified independent in room tolerating well. pt given hs meds and extra dose of melatonin as requested. pt fell asleep and did wake up to have loose stool. pt somewhat frustrated with persistent loose stools. pt does not want to take laxatives afraid it will be worse. much encouragement given to pt. call light in reach. will continue to monitor.
[2021-04-10 07:15] VITALS: BP 133/76
--- NOTE | 2021-04-10 17:51 | NUR ---
ASSUMED CARE OF PATIENT AT SHIFT CHANGE. ASSESSMENT CHARTED. MEDS ADMINISTERED PER OCT; PATIENT REFUSED LAXATIVES AND IRON. PATIENT VOICED CONCERN FOR HAVING IRON SUPPLEMENT RESUMED; THOUGHT IT WAS DISCONTINUED. HOSPITALIST ROUNDED ON PATIENT AND DISCONTINUED LAXATIVES. PATIENT DOES PLAN ON SPEAKING TO TRIAL CONSULTANT TOMORROW MORNING ABOUT STOMACH CRAMPING AND GI CONCERNS. LOPERAMIDE GIVEN X1 TO ALLEVIATE SYMPTOMS. PATIENT TOOK A SHOWER W SET UP AND DID VERY WELL. REMAINS MODIFIED INDEPENDENT AND TOLERATING WELL. APPETITE IMPROVING. VOICED NO FURTHER ISSUES OR NEEDS. WILL CONTINUE TO MONITOR
[2021-04-10 22:25] VITALS: BP 129/70
--- NOTE | 2021-04-10 23:46 | NUR ---
PT ASSESSMENT COMPLETED AND VSS. MEDS GIVEN ORDERED AND WELL TOLERATED. FALL PRECAUTIONS IN PLACE. MOD I IN ROOM. STEADY. SLEEPING MEDICATION ORDERED AND PT STILL HAVING TROUBLE SLEEPING. PT DENIES NEEDS. WILL CONTINUE TO MONITOR FREQUENTLY. PRN STOMACH MEDS HELPFUL FOR GAS PAIN AND LOOSE STOOLS.
[2021-04-11 07:15] VITALS: BP 123/71
--- NOTE | 2021-04-11 09:21 | NUR ---
PT WORKING WITH THERAPY THIS AM. PT IS HAVING ISSUES WITH SLEEPING DURING THE HS. PT WAS ON A COUPLE OF MEDS AT HOME THAT WAS NOT ON THE MED REC LIST. PT DIDN'T COMPLAIN OF LOOSE STOOLS TO THIS [place]. REPRESENTATIVE. PT DENIES ANY PAIN TO KNEE. PT WAS USING MONISHA HOSE DURING THE DAY AND THEY WAS GETTING TIGHT ON HER LEGS. THERAPY WAS WONDERING IF SHE NEEDS THE MONISHA HOSE SINCE SURGERY 03/31.
[2021-04-11] MEDS ORDERED: NORVASC5 MG PO (13:30)
[2021-04-11] MEDS ORDERED: ARIMIDEX1 MG PO (13:31)
[2021-04-11] MEDS ORDERED: LIPITOR10 MG PO (13:32)
--- NOTE | 2021-04-11 13:49 | NUR ---
ADM TYLENOL 325MG 2 TABS PO FOR PAIN TO LEFT KNEE OF 6 ON 1-10 SCALE. PT REFUSED NARCOTIC.
--- NOTE | 2021-04-11 14:00 | NUR ---
D/C PICC LINE TO LEFT ARM. PT TOLERATED WELL. PLACED GAUZE AND CENTRAL LINE DRESSING TEGADERM OVER SITE. NO SIGNS OF BLEEDING.
[2021-04-11] MEDS ORDERED: LYRICA150 MG PO (17:54)
[2021-04-11] MEDS ORDERED: LISINOPRIL20 MG PO (17:55)
[2021-04-11] MEDS ORDERED: FOLIC ACID1 MG PO (17:55)
[2021-04-11] MEDS ORDERED: ENBREL50 MG/1 M2 SUBQ (17:56)
[2021-04-11] MEDS ORDERED: METHOTREXATE 22.5 M1 SUBQ (17:58)
[2021-04-11] MEDS ORDERED: PAMELOR25 MG PO (17:59)
[2021-04-11] MEDS ORDERED: SPIRONOLACTONE25 M1 PO (18:00)
[2021-04-11] MEDS ORDERED: VITAMIN D310 MCG PO (18:02)
[2021-04-11] MEDS ORDERED: FISH OIL 1,0001 EAC9 PO (18:03)
[2021-04-11] MEDS ORDERED: VITAMIN B-125000 MCG SUBLING (18:03)
[2021-04-11] MEDS ORDERED: MAGNESIUM250 M1 PO (18:03)
[2021-04-11] MEDS ORDERED: VITAMIN C500 M1 PO (18:04)
[2021-04-11 19:30] VITALS: BP 129/54
--- NOTE | 2021-04-11 22:43 | NUR ---
PT ASSESSMENT COMPLETED AND VSS. MEDS GIVEN ORDERED AND WELL TOLERATED. MOD I IN ROOM AND STEADY. PT SLEEPING WELL THIS EVENING AFTER NOT SLEEPING WELL FOR SEVERAL DAYS. PT STATES THAT HER STOMACH IS FEELING MUCH BETTER TODAY. SHE DID NOT HAVE A LOOSE STOOL TODAY. PT DENIES NEEDS. WILL CONTINUE TO MONITOR FREQUENTLY.
[2021-04-12 05:31] LABS: ABSOLUTE NEUTROPHILS 6.6 thou/uL (1.4-8.2); BASOPHILS 0.7 % (0.0-2.0); EOSINOPHILS 1.2 % (0.0-3.0); HEMATOCRIT 24.6 % (37.0-47.0); HEMOGLOBIN 8.4 gm/dL (12.0-15.0); LYMPHOCYTES 12.3 % (24.0-44.0); MCH 31.9 pg (26.0-34.0); MCV 93.9 fL (80.0-100.0); PLATELET COUNT 797 thou/uL (150-400); POLYS 76.8 % (36.0-66.0); RBC 2.62 mil/uL (4.20-5.00); RDW 15.1 % (10.5-14.5); WBC 8.6 thou/uL (4.0-11.0)
[2021-04-12 05:45] LABS: CALCIUM 8.4 mg/dL (8.5-10.1); CREATININE 0.7 mg/dL (0.6-1.0); POTASSIUM 3.7 mmol/L (3.5-5.1)
[2021-04-12 07:15] VITALS: BP 120/70
--- NOTE | 2021-04-12 10:30 | NUR ---
ASSUMED CARE AT 0700. PATIENT IS ALERT AND ORIENTED X4. PATIENT SANDERSON'S, CABIN OUTFITTER ARE EQUAL. LUNGS ARE CLEAR. ABD IS SOFT WITH BSX4. PATIENT IS MOD/I IN ROOM WITHOUT DEVICES. PATIENT CAN WALK IN [place] WITH FAMILY. UP TO THE BATHROOM INDEPENDENTLY TO VOID KERRY COLORED URINE. FALL AND SAFETY PROTOCOLS IN PLACE. DENIES PAIN AT THIS TIME. CONTINUES TO PROGRESS TOWARDS D/C GOALS. WILL CONTINUE TO MONITER.
--- NOTE | 2021-04-12 12:41 | NUR ---
team meeting, recommendation: she requeting to go home, hgb 8.6. DC today with outpt therapy ( pt and ot). need to found her own pcp.
[2021-04-12] MEDS ORDERED: PROTONIX40 M2 PO ×2 (14:29→14:31)
[2021-04-12] MEDS ORDERED: SIMETHICON CHEW80 M1 PO (14:29)
[2021-04-12] MEDS ORDERED: MELATONIN5 M1 PO (14:29)
[2021-04-12] MEDS ORDERED: IRON325 PO (14:29)
[2021-04-12] MEDS ORDERED: ATENOLOL 25 MG25 M1 PO (14:29)
[2021-04-12 14:30] VITALS: BP 120/75
[2021-04-12] MEDS ORDERED: FERREX 150 PLU1 EAC1 PO (14:41)
[2021-04-12] MEDS ORDERED: COLACE100 MG PO (14:43)
[2021-04-12] MEDS ORDERED: METAMUCIL SUGA283 GM PO (14:43)
[2021-04-12 14:52] VITALS: BP 120/75
--- NOTE | 2021-04-12 15:41 | NUR ---
DISCHARGE INSTRUCTIONS GIVEN TO PATIENT AND . PATIENT AND SPOUSE VERBALIED UNDERSTANDING OF D/C INSTRUCTIONS. PATIENT LEFT WITH ALL OF HER BELONGINGS , H & P, AND D/C SUMMERY. PATIENT WAS MOD/I IN ROOM AND TRANSFERED FROM THE BED TO THE W/C . PATIENT AMBULATED INDEPENDENTLY FROM W/C TO CAR.
== END 2021-04-12 15:45 | disposition home or self-care (01) | DRG 947 ==
LOC: 2N 14:14
PROVIDERS: Hospitalist; Nurse Practitioner; Nurse Practitioner Family; ADMIT Physical Medicine & Rehabilitation; ATTEND Physical Medicine & Rehabilitation
DX: R53.81 Other malaise (principal); K29.71 Gastritis, unspecified, with bleeding; K26.4 Chronic or unspecified duodenal ulcer with hemorrhage; K56.7 Ileus, unspecified; K56.609 Unspecified intestinal obstruction, unspecified as to partial versus complete obstruction; K59.00 Constipation, unspecified; D64.9 Anemia, unspecified; I95.9 Hypotension, unspecified; Z96.652 Presence of left artificial knee joint; I10 Essential (primary) hypertension; M19.90 Unspecified osteoarthritis, unspecified site; F43.22 Adjustment disorder with anxiety; E78.5 Hyperlipidemia, unspecified; E87.6 Hypokalemia; T40.605A Adverse effect of unspecified narcotics, initial encounter; R19.7 Diarrhea, unspecified; Z88.6 Allergy status to analgesic agent; Z87.442 Personal history of urinary calculi; Y92.89 Other specified places as the place of occurrence of the external cause
CPT/HCPCS: 10112